=== PATIENT | male | born 1965 | race Caucasian/White ===

== ENCOUNTER 2019-07-05 17:35 | Emergency (ER) | payer BC, OTHER ==
[2019-07-05] MEDS ORDERED: IBUPROFEN 400 MG TAB ONE (18:09)
[2019-07-05] MEDS ORDERED: IBUPROFEN 200 MG TAB PO ONE (18:09)
[2019-07-05] MEDS ORDERED: HYDROCODONE/APAP 10/325 TAB ONE (18:55)
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
[2019-07-05 21:34] VITALS: BP 129/81; TEMP 97.9; O2SAT 99
== END 2019-07-05 21:26 | disposition home or self-care (01) ==
LOC: ER 17:35
DX: S43.61XA Sprain of right sternoclavicular joint, initial encounter (principal); S43.211A Anterior subluxation of right sternoclavicular joint, initial encounter; S20.219A Contusion of unspecified front wall of thorax, initial encounter; V29.40XA Motorcycle driver injured in collision with unspecified motor vehicles in traffic accident, initial encounter; Y93.89 Activity, other specified; Y92.410 Unspecified street and highway as the place of occurrence of the external cause; E03.9 Hypothyroidism, unspecified
CPT/HCPCS: 71045; 71250; 99283